=== PATIENT | male | born 1930 | race Caucasian/White ===

== ENCOUNTER 2018-02-20 15:42 | Inpatient (IN) | payer MEDICARE, MEDICAID ==
[2018-02-20 16:57] LABS: #Basophils 0.1 thou/uL (0.0-0.2); #Eosinphils 0.3 thou/uL (0.0-0.7); #Lymphocytes 1.8 thou/uL (1.20-3.40); #Monocytes 0.4 thou/uL (0.11-0.59); #Neutrophils 8.5 thou/uL (1.40-6.50); %Eosinophils 2.7 % (0.0-10.0); %Lymphocytes 16.2 % (21.0-51.0); %Monocytes 3.8 % (0.0-10.0); %Neutrophils 76.3 % (42.0-75.0); Hemoglobin 13.6 g/dL (14.0-18.0); Mean Platelet Volume 7.7 fL (7.4-10.4); Platelet Count 222 thou/uL (130-400); RBC Distribution Width 14.1 % (11.5-14.5); Red Blood Cell (RBC) Count 4.26 mill/uL (4.70-6.10); White Blood Cell (WBC) Count 11.1 thou/uL (4.8-10.8)
[2018-02-20] MEDS ORDERED: Acetaminophen 500 MG TAB ONE (16:58)
--- NOTE | 2018-02-20 17:07 | CT ---
CT BRAIN WITHOUT CONTRAST 02/20/18 HISTORY: 87-year-old male with decreased vision in the left eye and headaches. FINDINGS: There is loss of tillman-white matter differentiation and edema in large portions of the right temporo-o ccipital lobe consistent with subacute infarction. No evidence of hemorrhage, midline shift, or abnor mal extra-axial fluid collections are seen. There are changes of cortical atrophy and old lacunar inf arctions in the right basal ganglia and the left periventricular white matter. The bony calvarium is intact. The visualized paranasal sinuses and mastoid air cells are well aerated. IMPRESSION: Subacute right temporo-occipital infarction. Discussed over the telephone with Miguel Mello, nurse practitioner of the Emergency Room at 4:54 p.m . POS: JUAN
[2018-02-20 17:19] LABS: CKMB 0.8 ng/mL (0-6.6); Troponin I Less than 0.010 ng/mL (< 0.028)
[2018-02-20 17:21] LABS: ALT (SGPT) Less than 7 U/L (8-55); AST (SGOT) 9 U/L (5-34); Albumin 3.8 g/dL (3.4-4.8); Alkaline Phosphatase 143 U/L (40-150); Anion Gap 15 mmol/L (10-20); BUN (Urea Nitrogen) 20 mg/dL (8.4-25.7); Bilirubin, Total 0.9 mg/dL (0.2-1.2); Calc. Creatinine Clearance 0 mL/min (70-130); Calcium 9.2 mg/dL (7.8-10.44); Carbon Dioxide 23 mmol/L (23-31); Chloride 104 mmol/L (98-107); Estimated GFR-MDRD 54; Glucose 163 mg/dL (83-110); Potassium 4.5 mmol/L (3.5-5.1); Protein, Total 6.8 g/dL (5.8-8.1); Sodium 137 mmol/L (136-145)
[2018-02-20] MEDS ORDERED: Ketorolac Tromethamine 30 MG/ML VIAL ONE (17:30)
[2018-02-20 19:45] VITALS: BMI 21.9
[2018-02-20] MEDS ORDERED: Ondansetron HCl/PF 4 MG/2 ML Vial IVP PRN (21:04)
[2018-02-20] MEDS ORDERED: Ondansetron ODT 4 MG TAB SL PRN (21:04)
[2018-02-20] MEDS ORDERED: Acetaminophen 325 MG TAB PO PRN (21:04)
[2018-02-20] MEDS ORDERED: HYDROcodone/Acetaminophen 10/325 mg Tablet PO PRN (22:07)
[2018-02-21] MEDS ORDERED: HYDROcodone/Acetaminophen 10/325 mg Tablet PO PRN (04:45)
[2018-02-21] MEDS ORDERED: Labetalol HCl 100 MG/20 ML VIAL SLOW IVP PRN (06:49)
[2018-02-21] MEDS ORDERED: hydrALAZINE 20 MG/ML VIAL SLOW IVP PRN (06:49)
[2018-02-21] MEDS ORDERED: Senokot 8.6 MG TAB PO PRN (06:58)
[2018-02-21] MEDS ORDERED: Promethazine HCl 25 MG SUPP PR PRN (06:58)
[2018-02-21] MEDS ORDERED: Docusate 100 MG CAP PO PRN (06:58)
[2018-02-21] MEDS ORDERED: Ondansetron ODT 4 MG TAB PO PRN (06:58)
[2018-02-21] MEDS ORDERED: Famotidine/PF 20 mg/2ml Vial SLOW IVP PRN ×2 (06:58→07:04)
--- NOTE | 2018-02-21 07:59 | RAD ---
CHEST ONE VIEW: HISTORY: Pneumonia. COMPARISON: 10/06/2016 FINDINGS: The cardiac silhouette is magnified by projection. The pulmonary vasculature is at the upper limits of normal. 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 Right hemidiaphragm elevation is aga in demonstrated. No lobar consolidation or evidence of pneumothorax. IMPRESSION: Chronic type findings appear stable. POS: CALEB
--- NOTE | 2018-02-21 08:34 | ULT ---
CAROTID DUPLEX SONOGRAM: Date: 02/21/18 HISTORY: CVA. Vascular disease. FINDINGS: RIGHT: Color and spectral Doppler evaluation, peak systolic velocity of 134 cm/second, and ICA/CCA ratio of 1.2 suggests stenosis within the proximal right ICA to approach 50%. Antegrade flow within the verteb ral artery. LEFT: Mild plaque. Color and spectral Doppler evaluation, peak systolic velocity of 90 cm/second, and ICA/C CA ratio of 0.7 suggests no hemodynamically significant stenosis within the extracranial left ICA. An tegrade flow within the vertebral artery. IMPRESSION: Atherosclerosis. Slightly elevated velocity within the proximal right ICA suggesting stenosis approac barney 50%. If clinically, appropriate, please consider CT arteriogram neck for better characterization . POS: JUAN
[2018-02-21] MEDS: Clopidogrel Bisulfate 75 MG TAB PO SCH (08:58)
[2018-02-21] MEDS: OLANZapine 5 MG TAB PO SCH (08:58)
[2018-02-21] MEDS: Levothyroxine Sodium 25 MCG TAB PO SCH (08:58)
[2018-02-21] MEDS: DULoxetine 60 MG CAP PO SCH (08:59)
[2018-02-21] MEDS: FLUoxetine HCl 20 MG CAP PO SCH (08:59)
[2018-02-21] MEDS ORDERED: Non-Formulary Item 1 EACH (Fluoxetine Hcl [Fluoxetine Hcl] 20 MG) PO SCH (09:00)
--- NOTE | 2018-02-21 13:41 | HP ---
DATE OF SERVICE: 02-21-2018 CHIEF COMPLAINT: Headache with vision changes. PRESENTING HISTORY OF PRESENT ILLNESS: Apparently over the weekend the patient was with a sustained headache that was not improving, substantially worsening despite his compliance with chronic pain med ication, [place] 1.5 tablets at least t.i.d. on an outpatient basis. The patient had subsequent worsen ing of left visual field and eye movements, he presented to the emergency department yesterday for ev aluation and was found to have acute on chronic CVA to right side on CT. The patient has no other acu te complaints at bedside other than continued headaches. Nursing staff reports that his NIH score munoz s slowly worsened without additional findings. The patient is able to move all extremities and answe r appropriately to questions, approximately at his baseline from outpatient basis at bedside today. REVIEW OF SYSTEMS: No fevers, no chills, no cough, no congestion, no chest pain, no palpitations. N o abdomen pain. Positive constipation. No diarrhea, incontinence of urine, weak urine stream, visio n changes, headache or positive weakness to the left side. Positive intention tremor positive. PAST MEDICAL HISTORY: Includes congestive systolic heart failure, status post AICD placement, degene rative disk disease of lumbar spine with chronic pain management, hypertension, major depression, BPH , history of major depression, currently controlled, parkinsonism disease with gait disturbance follo wed by Dr. Garcia on outpatient basis for Cardiology. HOME MEDICATIONS: 1.5 tablets of hydrocodone 10/325 q.8h. scheduled. Trimethoprim 100 mg once daily prior to bed, prophylaxis for UTIs, finasteride 5 mg, tamsulosin 0.4 mg, levothyroxine 25 mcg, olanz apine 5 mg, digoxin 250 mcg, aspirin 81 mg, duloxetine 80 mg, fluoxetine 20 mg, carvedilol 25 mg. PAST SURGICAL HISTORY: Include AICD placement, exploratory laparotomy following trauma of the abdome n, lumbar nerve ablation, left rotator cuff surgery, thoracic aorta endovascular surgery. SOCIAL HISTORY: Patient is currently a nonsmoker, and lives with spouse. He is ambulatory w ith walker as assistance. FAMILY HISTORY: Noncontributory. ALLERGIES: No known drug allergies. Last echo seen on file with Dr. Melgar reviewing was 07/2014 along with carotid Doppler, ejection fra ction at that point in time was 55-60%, mildly left enlarged atrium, prior carotid study at that poin t in time, 50-69% stenosis of right ICA. LABORATORY DATA: White blood cell count of 11.1, hemoglobin of 13.6, neutrophils of 76% with 8.5 ban ds, cell count of 222. Glucose 150-163. Sodium 137, potassium 4.5, chloride 104, BUN of 20, creatin ine of 1.2, estimated GFR 54, AST of 9, ALT 7, alkaline phosphatase of 143, troponin x1 less than 0.[address] of [address] head on admission in the emergency department; subacute right temporal occipital infarct. Chest C T without acute cardiopulmonary events. Carotid Doppler on this admission; atherosclerosis, elevated velocity on right proximal ICA suggestive of approximately 50% stenosis, correlate with CT angiogram for more characterization. CT angiogram official read pending; however, speaking with Dr. Damon of Radiology, recommending Cardiovascular Surgery evaluation given a tortuous nature and diminished flow following a stenosis of approximately 50%. We will await formal read and consult Vascular Surgery a s planned per Radiology's recommendations. PHYSICAL EXAMINATION: VITAL SIGNS: Temperature of 97.3, pulse of 60, respiratory rate of 14, oxygen saturation is 95 on ro om air, blood pressure is 190/84, ranged down to 159/73. GENERAL: The patient is slightly somnolent; however, easily arousable, he is alert to person, place, time; however, cannot give specifics to the exact date or year, but appears to be at his baseline co gnitively from outpatient perspective given his history of Parkinsonism. No acute distress other karin n a reported headache. HEENT: Normocephalic, atraumatic. Extraocular movements are intact until left lateral gaze is held in fixation with fatigue. Right lateral gaze will deviate to the left with fatigue. The patient sta nina he is somewhat diminished visual field on that side. No difficulty with right extraocular moveme nts. The patient able to move eyes, blink and has pupillary response equal, round, reactive and acco mmodate to light bilaterally. Cranial nerves otherwise nerves II-XII grossly intact, poor dentition is noted. NECK: Supple. HEART: Regular rate and rhythm. No murmurs auscultated. LUNGS: Clear to auscultation bilaterally. ABDOMEN: Soft, nontender, positive bowel sounds throughout. EXTREMITIES: Lower extremities without cyanosis or edema. The patient with good movement against gr avity in both left upper and lower extremities; however, does have some weakness in comparison to his right side, would rate the left upper and lower extremities at 4/5 strength. Deep tendon reflexes 2 + upper and lower extremities bilaterally. 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 I agree with increase from aspirin to Plavix therapy. Once formal read of CT re peat is back will likely place patient on prophylactic Lovenox I unless not wanted per Cardiovascular Surgery if any recommendations for a carotid endarterectomy are made. We will see Cardiovascular Ramirez kaylin's recommendations regarding findings on the carotid Doppler and CTA. We will follow up Neurolo rina's recommendations additionally as well as PT, OT and Speech, currently passed bedside swallow brigitte luation has been placed on mechanically soft diet. Permissive hypertension at this point in time. W ill goal to restart patient's home blood pressure medications in the next 24-48 hours. Echocardiogra m to complete a CVA workup is pending. Given leukocytosis on admission and the patient's benign pros tatic hypertrophy, we will follow up on urinalysis and culture. We will treat as needed. We will fo llow up white blood cell count and trend while inpatient. We will follow up on pending studies and t herapy recommendations.
--- NOTE | 2018-02-21 14:01 | CT ---
CT ANGIOGRAM HEAD CT ANGIOGRAM NECK: HISTORY: Worsening stroke symptoms. COMPARISON: None. TECHNIQUE: Noncontrast head CT is performed from skull base to skull vertex. CT angiogram of head and neck perfo rmed in axial plane. Three-dimensional reformatted images are submitted for interpretation. FINDINGS: NONCONTRAST HEAD CT: Expected evolutionary changes from a subacute right temporo-occipital infarct. No new infarcts are ap preciated. Stable hypoattenuation of the left jean radiata. The left cerebrum demonstrates overall preservation of cortical tillman-white matter differentiation. Bilateral ocular lenses are appropriately located. Both globes are intact. Retrobulbar fat is preserv ed. Aerodigestive tract is patent. No obvious mucosal abnormality. Evaluation is limited due to dental am algam artifact. Extensive periodontal disease with periapical lucencies noted. Symmetric attenuation of the submandibular glands. Epiglottis has a normal caliber. Preepiglottic fat is preserved. No prevertebral soft tissue swelling. Sternocleidomastoid muscles are unremarkable. No evidence of lymphadenopathy by size criteria. Cervical spine vertebral body height is maintained. There is no fracture. There is diffuse sclerosis in all of the visualized osseous structures. Correlate for metabolic process. Upper mediastinum is unremarkable. 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 Chronic changes in lung api serenity. CT ANGIOGRAM: There is overall appropriate enhancement and luminal diameter of the ascending thoracic aorta. Right Carotid: The right carotid artery origin has appropriate enhancement and luminal diameter. The right common ca rotid artery, carotid bifurcation, and internal carotid artery have appropriate enhancement and lumin al diameter. There is calcified and noncalcified plaque involving the proximal right internal carotid artery. There is less than 50% stenosis based upon NASCET criteria. Nevertheless, the anterior poste rior diameter of the proximal right carotid artery is only 3.2 mm. Consider cardiovascular surgical c onsultation for further evaluation. The mid to distal right internal carotid artery is patent. Left Carotid: The left carotid artery origin is unremarkable. There is tortuosity of the mid common carotid artery. There is no significant stenosis of the common carotid artery, carotid bifurcation, or internal mahoney tid artery. Both subclavian arteries are patent. The left vertebral artery is patent throughout its course of the neck. The right vertebral artery only has contrast opacification from C3 onward and suggests possibl e proximal stenosis. Posterior Circulation: There is appropriate enhancement and luminal diameter of the distal cervical and intracranial interna l carotid arteries. There is atherosclerosis of both cavernous segments without significant stenosis. Anterior circulation demonstrates mild irregularity involving the left M1 segment without focal high grade stenosis. Right M1 segment and right A1 segment are unremarkable. Congenitally diminutive left A1 segment. Proximal A2 segments are symmetric. Proximal MCA segments are also symmetric. There is a decrease in the overall number of vessels in the posterior right MCA distribution compatible with known region of stroke. Posterior Circulation: There is irregular appearance of the intracranial right vertebral artery. Short segments of mild sten osis involving the intracranial left vertebral artery. The basilar artery appears to have short segme nt moderate stenosis proximally. The basilar artery is diminutive throughout its course. Basilar angie ry likely has superior cerebellar artery termination. Both posterior cerebral arteries likely have a origin. Evaluation of both printing table worker is somewhat limited on this examination. The right CIGARETTE MAKING MACHINE CATCHER appears to have significant stenosis proximally. IMPRESSION: 1. Though there is no evidence of significant stenosis in the carotid arteries based upon NASCET cri teria. The overall luminal diameter of the proximal right internal carotid artery is diminutive. Card iovascular surgical consultation is recommended. 2. Irregular left M1 segment. 3. Limited evaluation of posterior circulation. Overall, the basilar arteries and proximal printing table worker are diminutive. 4. Diffuse sclerosis. Correlate for metabolic process. 5. Expected evolutionary changes of a right cerebral infarct. Results of study left with Dr. Garcia's cell phone on 02/21/18 at 1204 hours. CODE CR. POS: [facility]
[2018-02-21] MEDS: HYDROcodone/Acetaminophen 10/325 mg Tablet PO SCH ×2 (14:15→21:02)
[2018-02-21] MEDS ORDERED: Iopamidol 370 76% 100 ML VIAL ONE (14:20)
[2018-02-21 14:53] LABS: Bilirubin Small (Negative); Blood, Urine Negative (Negative); Clarity CLEAR (Clear); Glucose, Urine (Dipstick) Negative (Negative); Leukocyte Negative (Negative); Nitrite Negative (Negative); Protein, Urine (Dipstick) 100 mg/dL (Neg-Trace); pH, Urine 5.5 (5.0-9.0)
[2018-02-21 14:54] LABS: Specific Gravity, Urine 1.047 (1.002-1.036)
[2018-02-21 14:56] LABS: Bacteria/HPF None Seen HPF (None Seen); RBC/HPF 0-3 HPF (0-3); WBC/HPF 0-3 HPF (0-3)
[2018-02-21 15:04] LABS: Hyaline Casts/LPF 0-3 HYALINE CAST LPF (0-3 Hyaline)
[2018-02-21 15:05] LABS: Manual Microscopic Reviewed? No Path Casts Seen; Renal Epithelial None Seen HPF (0-3); Transitional Epithelial NONE SEEN HPF (0-3)
[2018-02-21] MEDS: NS 0.9% w/ 20 MEQ KCL 1,000 ML/1,000 ML BAG IV SCH (19:34)
[2018-02-21] MEDS: Atorvastatin Calcium 40 MG TAB PO SCH (21:02)
[2018-02-21] MEDS: Enoxaparin Sodium 40 MG/0.4 ML SYRINGE SC SCH (21:02)
[2018-02-21] MEDS: Tamsulosin HCl 0.4 MG CAP PO SCH (21:04)
[2018-02-22] MEDS: NS 0.9% w/ 20 MEQ KCL 1,000 ML/1,000 ML BAG IV SCH ×4 (03:27→21:19)
[2018-02-22 04:34] LABS: #Eosinphils 0.5 thou/uL (0.0-0.7); #Lymphocytes 2.2 thou/uL (1.20-3.40); #Monocytes 0.6 thou/uL (0.11-0.59); #Neutrophils 4.7 thou/uL (1.40-6.50); %Basophils 0.1 % (0.0-1.0); %Eosinophils 5.8 % (0.0-10.0); %Lymphocytes 27.4 % (21.0-51.0); %Neutrophils 58.7 % (42.0-75.0); Hemoglobin 12.3 g/dL (14.0-18.0); Mean Corpuscular HGB CONC 33.4 g/dL (32.0-36.0); Mean Corpuscular Volume 95.7 fL (78.0-98.0); Mean Platelet Volume 8.1 fL (7.4-10.4); Platelet Count 175 thou/uL (130-400); RBC Distribution Width 14.3 % (11.5-14.5); Red Blood Cell (RBC) Count 3.86 mill/uL (4.70-6.10)
[2018-02-22 04:53] LABS: Anion Gap 12 mmol/L (10-20); BUN (Urea Nitrogen) 26 mg/dL (8.4-25.7); Calc. Creatinine Clearance 49 mL/min (70-130); Calcium 8.4 mg/dL (7.8-10.44); Carbon Dioxide 22 mmol/L (23-31); Cardiac Risk 6.2 (Less than 4.5); Chloride 109 mmol/L (98-107); Cholesterol 149 mg/dl (< 200 Desired); Estimated GFR-MDRD 66; Glucose 97 mg/dL (83-110); HDL Cholesterol 24 mg/dL (>60 Neg Risk); LDL Cholesterol, Calculated 92 mg/dL; Potassium 4.6 mmol/L (3.5-5.1); Sodium 138 mmol/L (136-145); Triglycerides 167 mg/dL (Less than 150)
[2018-02-22 05:32] LABS: Digoxin 0.67 ng/mL (0.8-2.0)
[2018-02-22] MEDS: HYDROcodone/Acetaminophen 10/325 mg Tablet PO SCH ×3 (06:28→21:02)
[2018-02-22] MEDS: OLANZapine 5 MG TAB PO SCH (08:22)
[2018-02-22] MEDS: FLUoxetine HCl 20 MG CAP PO SCH (08:22)
[2018-02-22] MEDS: Carvedilol 25 MG TAB PO SCH ×2 (08:22→16:35)
[2018-02-22] MEDS: Finasteride 5 MG TAB PO SCH (08:22)
[2018-02-22] MEDS: DULoxetine 60 MG CAP PO SCH (08:23)
[2018-02-22] MEDS: Digoxin 0.25 MG TAB PO SCH (08:23)
[2018-02-22] MEDS: Clopidogrel Bisulfate 75 MG TAB PO SCH (08:23)
[2018-02-22] MEDS: Levothyroxine Sodium 25 MCG TAB PO SCH (08:23)
[2018-02-22] MEDS: Acetaminophen 500 MG TAB PO PRN (08:49)
[2018-02-22] MEDS ORDERED: Lisinopril 20 MG TAB PO SCH ×2 (09:00→21:00)
--- NOTE | 2018-02-22 09:48 | CON ---
DATE OF CONSULTATION: 02/22/2018 CONSULTING PHYSICIAN: Hospitalist Service. IMPRESSION: 1. Right temporal occipital stroke. 2. Hypertension. 3. Chronic pain. PLAN: 1. Continue Plavix as you have ordered. 2. Rehab evaluation. HISTORY OF PRESENT ILLNESS: Mr. Zimmerman is an 87-year-old gentleman who presented with complaints of left-sided weakness and headache, this began 2 or [address] scan of the brain showed a sub acute area of infarction involving the right temporal occipital region. His CT angiogram did not alize w any significant stenosis, although there were some diminutive vessels present. He is quite hyperte nsive. His echocardiogram showed a normal ejection fraction around 50%. He passed a swallowing stud y. He still complains of some headache. PAST MEDICAL HISTORY: 1. Hypothyroidism. 2. Hypertension. 3. Chronic back pain, mild renal insufficiency. ALLERGIES: None. SOCIAL HISTORY: He is still living at home prior to this event. FAMILY HISTORY: Noncontributory. REVIEW OF SYSTEMS: No complaint of chest pain or shortness of breath. PHYSICAL EXAMINATION: GENERAL: A well-nourished elderly gentleman sitting up in bed in no distress. VITAL SIGNS: Blood pressure 188/81, pulse 65, respirations 16, temperature 98.4. HEENT: Pupils are equal, minimally reactive. Conjunctivae clear. Oropharynx clear. NECK: Supple, no lymphadenopathy. EXTREMITIES: No cyanosis. NEUROLOGIC: He was alert and cooperative. His speech was mildly dysarthric. Cranial nerve exam alize wed flattening of the left nasal labial fold. Motor exam showed antigravity strength on the left vito e with diminished rapid alternating movements. His left visual field is impaired. Gait was not test ed. No abnormal movements were noted. Plantar response was upgoing on the left and downgoing on the right. LABORATORY STUDIES: Including his CBC, serum chemistry, urinalysis and digoxin level were unremarkab le. SUMMARY: This is an elderly gentleman suffered a thrombosis in the right posterior cerebral artery d istribution. His workup has been completed. I think they will probably need rehabilitation transfer or assisted. I agree with your plan of treatment.
--- NOTE | 2018-02-22 13:08 | PRG ---
DATE OF SERVICE: 02/22/2018 HISTORY OF PRESENT ILLNESS: The patient is without acute events overnight, tolerated IV fluids well following dehydration found on urinalysis, resumed on home blood pressure medications and prostate medications this morning. Neurology agrees with current management pending a cardiovascular consultation for recommendations on right carotid flow pattern. I spoke with the patient's spouse yesterday regarding his condition. Physical therapy unable to treat secondary to blood pressure elevations. The patient states he has got somewhat of a head fog. Headache has been improved since resuming home narcotic schedule. He remains with lack of appetite today. PHYSICAL EXAMINATION: VITAL SIGNS: Temperature of 98.4, pulse of 65, respiratory rate of 16, oxygen saturation 92% on room air, blood pressure 188/81, spike into 227/89 at 08:45 this a.m. GENERAL: The patient is alert and oriented with more clear speech, more alert this a.m. HEENT: Normocephalic, atraumatic. Extraocular movements are intact. Slight left corner droop; however, the patient is not drooling and is able to move his tongue well. NECK: Supple. CARDIOVASCULAR: Regular rate and rhythm. No murmurs auscultated. Pacemaker palpable over chest wall. LUNGS: Clear to auscultation bilaterally. No rubs or wheezes. ABDOMEN: Soft, nontender, positive bowel sounds throughout. EXTREMITIES: Lower extremities without cyanosis or edema. Deep tendon reflexes of upper and lower extremities intact, 2+. Strength 4/5 left, 5/5 right. Moving all extremities equally. NEUROLOGIC: The patient is alert and oriented x3 with improved accuracy in detail compared to yesterday. The patient still reports some left vision impairment. LABORATORY DATA: Following IV fluids, white blood cell count improved to 8.0, hemoglobin of 12.3, platelet count of 175,000, neutrophils of 58.7. Sodium of 138, potassium of 4.6, creatinine of 1.0, estimated GFR of 66, glucose of 97, triglycerides of 167, cholesterol of 149, LDL of 92. TSH of 1.1. Digoxin level of 0.67. Urinalysis, no growth at 24 hours. ASSESSMENT AND PLAN: Right-sided cerebrovascular accident, carotid artery stenosis, history of systolic heart failure, current echo of 55%-60%. AICD has been placed prior and intact, functioning normally. Continuing [place] for the patient's chronic pain secondary to lumbar degenerative disk disease. Chronic kidney disease stage 3 is stable. We will likely discontinue IV fluids in the next 24 hours. Resume the patient's home medications regarding benign prostatic hypertrophy, tamsulosin and finasteride. Resume the patient's lisinopril, Coreg and digoxin. We will attempt to titrate the patient's blood pressure medications in an effort to allow physical therapy to work with the patient. Given his decreased appetite, confusion and inability to participate with physical therapy, he may be a more appropriate candidate for a short sent at inpatient rehabilitation. We will consult case management discuss w/ the patient may choose a home health depending on the fact that he is able to ambulate well with physical therapy once the blood pressure is controlled. CAMILA
--- NOTE | 2018-02-22 15:21 | CON ---
DATE OF CONSULTATION: 02/21/2018 REQUESTING PHYSICIAN: Chi Garcia M.D. CHIEF COMPLAINT: Left-sided visual field deficit and left-sided weakness with headache. HISTORY OF PRESENT ILLNESS: The patient is an 87-year-old man with a chronic pain syndrome requiring scheduled hydrocodone with a sustained headache over the last several days that was not improving. He developed difficulty seeing to the left of his visual field and noticed that his left arm and leg were somewhat weak. CT scanning upon presentation to the ER showed right temporo- occipital infarct that was evolving. The patient denies any antecedent symptoms consistent with amaurosis fugax and denies any other speech, facial or extremity symptoms that were transient consistent with TIAs. PAST MEDICAL HISTORY: Significant for congestive heart failure with an AICD implantation, lumbar disk disease with chronic pain, hypertension, history of major depression, Parkinson's disease. HOME MEDICATIONS: One and a half tablets of hydrocodone 10, acetaminophen 325 on a scheduled basis q.8 hours, Bactrim once a day, finasteride 5 mg a day, Flomax 1 a day, Synthroid 25 mcg a day, olanzapine 5 mg a day, digoxin 0.25 mg a day, baby aspirin a day, duloxetine 80 mg a day, fluoxetine 20 mg a day and Coreg 25 mg a day. ALLERGIES: The patient denies any medical allergies. SOCIAL HISTORY: Does not currently smoke. REVIEW OF SYSTEMS: As above with new-onset left-sided weakness and visual field deficit. He has a chronic intention tremor and walks with a walker. PHYSICAL EXAMINATION: GENERAL: He is an elderly, frail-appearing man. VITAL SIGNS: Heart rates have been in the 60 range, blood pressure 150-175/70- 80, room air O2 sats are 92%. He is 5 feet 9 inches, weighs 149 pounds. NECK: He has no JVD, no carotid bruits. HEENT: He has scarring in the left periorbital area that resembles skin grafting. LUNGS: He has clear breath sounds. CARDIAC: Regular rate and rhythm. NEUROLOGIC: He has left arm and leg weakness and has a binocular left visual field deficit laterally. LABORATORY DATA: His white count is 11.1, hemoglobin 13.6, platelets 222,000. He had normal electrolytes with creatinine of 1.27 and glucose of 160. His urinalysis was clean. CTA of his carotids showed some focal plaque in the right carotid bulb and proximal ICA and by my review, I would estimate it to be around 40%. His carotid ultrasound shows minimally elevated velocities on the right side with a normal ratio with internal carotid velocity of 134 and common of 94 for a ratio of 1.18. On the left side, the internal carotid was 89 and common 94 for a ratio of 0.67. There was no particular turbulence or spectral broadening on either side. IMPRESSION AND RECOMMENDATIONS: I doubt that he has significant carotid stenosis that could account for his stroke and I would be inclined to recommend medical management as you are doing rather than pursuing endarterectomy. This probably does warrant following, however, and I plan to enroll him in annual surveillance. CAMILA
[2018-02-22] MEDS: Atorvastatin Calcium 40 MG TAB PO SCH (20:13)
[2018-02-22] MEDS: Enoxaparin Sodium 40 MG/0.4 ML SYRINGE SC SCH (20:13)
[2018-02-22] MEDS: Tamsulosin HCl 0.4 MG CAP PO SCH (20:13)
[2018-02-23 04:53] LABS: #Basophils 0.1 thou/uL (0.0-0.2); #Eosinphils 0.7 thou/uL (0.0-0.7); #Monocytes 0.7 thou/uL (0.11-0.59); #Neutrophils 7.2 thou/uL (1.40-6.50); %Basophils 0.5 % (0.0-1.0); %Eosinophils 6.3 % (0.0-10.0); %Lymphocytes 18.8 % (21.0-51.0); %Monocytes 6.7 % (0.0-10.0); %Neutrophils 67.7 % (42.0-75.0); Hemoglobin 12.2 g/dL (14.0-18.0); Mean Corpuscular HGB CONC 32.8 g/dL (32.0-36.0); Mean Corpuscular Volume 97.6 fL (78.0-98.0); Platelet Count 209 thou/uL (130-400); RBC Distribution Width 14.2 % (11.5-14.5); Red Blood Cell (RBC) Count 3.82 mill/uL (4.70-6.10); White Blood Cell (WBC) Count 10.6 thou/uL (4.8-10.8)
[2018-02-23] MEDS: HYDROcodone/Acetaminophen 10/325 mg Tablet PO SCH ×3 (05:07→21:51)
[2018-02-23 05:12] LABS: Anion Gap 15 mmol/L (10-20); BUN (Urea Nitrogen) 20 mg/dL (8.4-25.7); Calc. Creatinine Clearance 57 mL/min (70-130); Calcium 8.6 mg/dL (7.8-10.44); Carbon Dioxide 17 mmol/L (23-31); Chloride 111 mmol/L (98-107); Estimated GFR-MDRD 80; Glucose 82 mg/dL (83-110); Sodium 138 mmol/L (136-145)
[2018-02-23] MEDS: NS 0.9% w/ 20 MEQ KCL 1,000 ML/1,000 ML BAG IV SCH (05:25)
[2018-02-23] MEDS: Levothyroxine Sodium 25 MCG TAB PO SCH (08:35)
[2018-02-23] MEDS: Digoxin 0.25 MG TAB PO SCH (08:35)
[2018-02-23] MEDS: Finasteride 5 MG TAB PO SCH (08:35)
[2018-02-23] MEDS: DULoxetine 60 MG CAP PO SCH (08:35)
[2018-02-23] MEDS: FLUoxetine HCl 20 MG CAP PO SCH (08:35)
[2018-02-23] MEDS: Carvedilol 25 MG TAB PO SCH ×2 (08:35→16:59)
[2018-02-23] MEDS: Clopidogrel Bisulfate 75 MG TAB PO SCH (08:35)
[2018-02-23] MEDS: Acetaminophen 500 MG TAB PO PRN (08:36)
[2018-02-23] MEDS: Hydrochlorothiazide 25 MG TAB PO SCH (08:36)
[2018-02-23] MEDS: Lisinopril 20 MG TAB PO SCH (08:36)
[2018-02-23] MEDS: OLANZapine 5 MG TAB PO SCH (08:48)
[2018-02-23] MEDS ORDERED: Labetalol HCl 100 MG/20 ML VIAL SLOW IVP PRN (15:01)
[2018-02-23] MEDS: Enoxaparin Sodium 40 MG/0.4 ML SYRINGE SC SCH (21:51)
[2018-02-23] MEDS: Atorvastatin Calcium 40 MG TAB PO SCH (21:52)
[2018-02-23] MEDS: Tamsulosin HCl 0.4 MG CAP PO SCH (22:32)
--- NOTE | 2018-02-24 04:33 | PRG ---
DATE OF SERVICE: 02/23/2018 HISTORY OF PRESENT ILLNESS: The patient continues to verbalize more; however, continues to have slur red speech, drooling out of left corner of the mouth and started to have some noticeable repetitive m uscle movements with the patient's mouth and hands that last for approximately 1-2 minutes each and s elf-resolve, had an episode of diarrhea that is nonbloody, non-foul smelling. Following diuretic thi s morning with hydrochlorothiazide, the patient has had good urine uptake and improved blood pressure s. The patient still reports right-sided headache, not fully alleviated by narcotics and Tylenol. T he patient pending evaluation with physical therapy and now his blood pressure was improved. No repo rted consideration for intervention with Cardiovascular Surgery evaluation for the patient's moderate carotid artery stenosis inflow pattern. LABORATORY DATA: White blood cell count of 10.6, hemoglobin of 12.2, platelet count of 209, potassiu m of 5.0. Sodium of 138, creatinine of 0.9, glucose of 82. Urine negative growth at 48 hours. PHYSICAL EXAMINATION: VITAL SIGNS: Temperature of 98.5, pulse of 61, respiratory rate of 20, oxygen saturation 95% on room air, blood pressure range 158-195, systolic 86-82 diastolic. Last BP evaluation of 176/82. GENERAL: The patient is alert, answering questions appropriately, using longer sentences than yester day. Verbalizes understanding current condition. HEENT: Normocephalic, atraumatic. The patient with a left visual field deficit, that is continued, slight facial droop to left side. NECK: Supple. EXTREMITIES: Upper extremities and lower extremities moving equally. Slight diminished strength to left lower extremity, 4/5. Deep tendon reflexes intact in upper and lower extremities. Lower extrem ities without cyanosis or edema. ABDOMEN: Soft, nontender, positive bowel sounds throughout. NEUROLOGIC: The patient is alert and oriented x3. Slurred speech. 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 Speaking with the patient and the patient's , they are comfortable going to inpati ent rehab or SNF as necessary. Currently looking at inpatient rehabilitation per nursing staff. We will have speech therapy come back by for reevaluation. The patient is unable to participate in some ADLs, may be more appropriate for SNF placement with longer evaluation lookout time. Continuing bet a prakash, statin, Plavix, patient's digoxin, prophylactic Lovenox currently. Continue the patient's Proscar, Flomax, increase lisinopril to 40 mg daily, resume hydrochlorothiazide and increased from h ome 12.5-25 mg. Continuing patient's prophylaxis with trimethoprim for BPH and history of infections . We will await physical therapy's initial evaluation, follow up with case management, inpatient lisa ab versus SNF placement. Follow up speech therapy's reevaluation.
[2018-02-24] MEDS: HYDROcodone/Acetaminophen 10/325 mg Tablet PO SCH ×2 (05:16→14:08)
[2018-02-24] MEDS: OLANZapine 5 MG TAB PO SCH (09:00)
[2018-02-24] MEDS ORDERED: Amlodipine 5 MG TAB PO SCH (09:00)
[2018-02-24] MEDS: Acetaminophen 500 MG TAB PO PRN (09:00)
[2018-02-24] MEDS: Levothyroxine Sodium 25 MCG TAB PO SCH (09:01)
[2018-02-24] MEDS: Hydrochlorothiazide 25 MG TAB PO SCH (09:01)
[2018-02-24] MEDS: DULoxetine 60 MG CAP PO SCH (09:02)
[2018-02-24] MEDS: Lisinopril 20 MG TAB PO SCH (09:02)
[2018-02-24] MEDS: Digoxin 0.25 MG TAB PO SCH (09:03)
[2018-02-24] MEDS: FLUoxetine HCl 20 MG CAP PO SCH (09:04)
[2018-02-24] MEDS: Clopidogrel Bisulfate 75 MG TAB PO SCH (09:04)
[2018-02-24] MEDS: Carvedilol 25 MG TAB PO SCH (09:05)
[2018-02-24] MEDS: Finasteride 5 MG TAB PO SCH (09:05)
[2018-02-24] MEDS ORDERED: Naproxen 500 MG TAB PO SCH (11:59)
[2018-02-24] MEDS ORDERED: Cyclobenzaprine 10 MG TAB PO SCH (12:45)
--- NOTE | 2018-02-24 14:03 | DIS ---
DATE OF ADMISSION: 02/20/2018 DATE OF DISCHARGE: 02/24/2018 PRIMARY CARE PHYSICIAN: Chi Garcia MD CHIEF COMPLAINT: Headache and loss of vision in left eye. PRESENTING HISTORY OF PRESENT ILLNESS: Patient, when speaking with spouse about CT findings, had an episode of forgetfulness and confusion in a grocery store approximately 1 month ago. Approximately 3 -5 days before hospital admission, the patient started saying he could not see the TV in his left eye . This prompted the patient's spouse to take him to the eye doctor. He noted he had a complete visu al field loss on left side and prompted the patient's spouse to take him to the emergency department for evaluation for stroke. CT showed active right CVA on top of prior CVA. Given the patient's pace maker, unable to assess further by MRI. [facility] CTA and carotid Dopplers showed aberrant fl ow pattern; however, Cardiovascular Surgery felt 50% stenosis was not convincing enough to go ahead a nd perform carotid endarterectomy, but will follow annually with Dopplers or CTA. The patient was ma intained on chronic pain medications for lumbar degenerative disk disease. Renal function was monito red for the patient's chronic kidney disease, stage 3, which was stable. The patient's benign prosta tic hyperplasia was continued to treat by his Flomax and finasteride. The patient's hypertension was allowed to be permissively elevated and then titrated down, increased from home 20/12.5 lisinopril/h ydrochlorothiazide to 40 mg and 25 mg respectively. I added additional 5 mg amlodipine and continued his home 25 mg of Coreg b.i.d. The patient had an episode of diarrhea, nonbloody, and nonfoul smell ing prior to discharge. Patient has a history of systolic heart failure and has an AICD pacemaker pl aced. He had no aberrant events on telemetry and no triggering with defibrillator. Additional histo ry prior to admission, the patient was just started on midodrine with Cardiology given orthostatic hy potension. The patient ambulated with physical therapy with assistance without much difficulty; plasencia fei, not very far given his blood pressure limitations while inpatient. The patient's spouse also ag luba continuation of therapy needed prior to his safety at home. [facility] DISCHARGE DIET: Given worsening dysphagia following a stroke, pureed consistencies throughout includ ing nectar-thickened liquids via spoon, applesauce consistency. [employer] diet wilfredo mmended, otherwise. MEDICATIONS: As listed above. Continuing the patient's trimethoprim prophylaxis daily, Zyprexa 5 mg , levothyroxine 25 mcg, fluoxetine 20 mg, digoxin 0.25 mg. New medication, Plavix, secondary prevent ion of stroke; 40 mg of atorvastatin. DISCHARGE CONDITION: Fair. FOLLOWUP: Follow up with Dr. Chi Garcia, [facility], in 1 week following discha maria ines from inpatient rehabilitation.
[2018-02-24 15:54] VITALS: BP 174/74; TEMP 98.4
== END 2018-02-24 15:55 | DRG 65 ==
LOC: ERS 15:42 → 2SE 17:50
PROVIDERS: ADMIT Family Medicine; ATTEND Family Medicine
DX: I63.331 Cerebral infarction due to thrombosis of right posterior cerebral artery (principal); I13.0 Hypertensive heart and chronic kidney disease with heart failure and stage 1 through stage 4 chronic kidney disease, or unspecified chronic kidney disease; I50.22 Chronic systolic (congestive) heart failure; R13.10 Dysphagia, unspecified; N18.3 Chronic kidney disease, stage 3 (moderate); M51.36 Other intervertebral disc degeneration, lumbar region; G20 Parkinson's disease; E86.0 Dehydration; R40.2430 Glasgow coma scale score 3-8, unspecified time
CPT/HCPCS: 36415; 36416; 70450; 70496; 70498; 71045; 80048; 80053; 80061; 80162; 81003; 81015; 82553; 84443; 84484; 85025; 87086; 93005; 93306; 93880; 96374; A4216; G8978-GP-CL; G8979-GP-CJ; G8987-GO-CJ; G8988-GO-CI; G8996-GN-CJ; G8996-GN-CK; G8997-GN-CJ; J0360; J1650; J1885

== ENCOUNTER 2018-03-05 15:34 | Outpatient (CLI) | payer MEDICARE, MEDICAID ==
--- NOTE | 2018-03-05 16:05 | CT ---
CT BRAIN WITHOUT CONTRAST: 03/05/18 HISTORY: Right temporo-occipital infarct, headache. FINDINGS: Comparison is made with the exam of 02/20/18. Expected evolutionary changes of the right temporo-occipital infarction is seen with developing encep halomalacia and no evidence of hemorrhagic transformation. No new acute infarcts, hemorrhages, midli ne shift or abnormal extra-axial fluid collections are seen. The ventricular size is stable and the b asilar cisterns are patent. Changes of cortical atrophy and old infarction in the basal ganglia bilat erally and left periventricular white matter is again seen. The bony calvarium is intact. IMPRESSION: Expected evolution of the right temporo-occipital infarction since 02/20/18. No evidence of a new acut e infarction or hemorrhage. POS: [facility]
== END 2018-03-05 15:35 | disposition home or self-care (01) ==
LOC: RAD 15:34
PROVIDERS: ATTEND Physical Medicine & Rehabilitation
DX: R51 Headache (principal); N18.3 Chronic kidney disease, stage 3 (moderate); Z86.73 Personal history of transient ischemic attack (TIA), and cerebral infarction without residual deficits
CPT/HCPCS: 70450